=== PATIENT | female | born 1975 | race American Indian/Alaskan Native ===

== ENCOUNTER 2018-09-22 10:14 | Emergency (ER) | payer MEDICARE ==
--- NOTE | 2018-09-22 12:26 | Emergency Department Report ---
ED General Adult HPI - General Chief complaint: Skin Rash Stated complaint: LFT BUTTOCK RASH Time Seen by Provider: 09/22/18 12:08 Source: patient Mode of arrival: Ambulatory Limitations: No Limitations - History of Present Illness Initial comments: Patient is 42 years old female with no significant past medical history except for pinched nerve to the right upper extremity. Patient presented to the ER complaining of rash to the left cheek started last night. Patient stated that she laid on a new couch that she didn't have before. Patient denied any fever or chills. Patient also requesting social worker aide for placement since she recently moved from [place]. - Related Data Allergies Allergy/AdvReac Type Severity Reaction Status Date / Time No Known Allergies Allergy Verified 09/22/18 10:16 ED Review of Systems ROS: Stated complaint: LFT BUTTOCK RASH Other details as noted in HPI Comment: All other systems reviewed and negative Constitutional: denies: chills, fever Respiratory: denies: cough, orthopnea, shortness of breath, SOB with exertion Cardiovascular: denies: chest pain, palpitations Gastrointestinal: denies: abdominal pain, nausea, vomiting Skin: rash ED Past Medical Hx - Past Medical History Previous Medical History?: No - Surgical History Past Surgical History?: Yes Hx Cholecystectomy: Yes Additional Surgical History: Hernia repair. abortions - Social History Smoking Status: Current Every Day Smoker Substance Use Type: None ED Physical Exam - General Limitations: No Limitations General appearance: alert, in no apparent distress - Head Head exam: Present: atraumatic, normocephalic, normal inspection - Eye Eye exam: Present: normal appearance, PERRL - ENT ENT exam: Present: normal exam, normal orophraynx, mucous membranes moist - Neck Neck exam: Present: normal inspection, full ROM. Absent: tenderness, meni ngismus, lymphadenopathy, thyromegaly - Respiratory Respiratory exam: Present: normal lung sounds bilaterally - Cardiovascular Cardiovascular Exam: Present: regular rate, normal rhythm, normal heart sounds - Extremities Exam Extremities exam: Present: normal inspection, full ROM - Neurological Exam Neurological exam: Present: alert, oriented X3, CN II-XII intact - Skin Skin exam: Present: warm, other (contact dermatitis to the left cheek) ED Course Vital Signs 09/22/18 10:30 Temperature 98.6 F Pulse Rate 87 Respiratory 16 Rate Blood Pressure 101/64 O2 Sat by Pulse 98 Oximetry Critical care attestation.: If time is entered above; I have spent that time in minutes in the direct care of this critically ill patient, excluding procedure time. ED Disposition Clinical Impression: Contact dermatitis, Homelessness Disposition: TO HOME OR SELFCARE Is pt being admited?: No Condition: Stable Instructions: Contact Dermatitis (ED), Cervical Radiculopathy (ED) Referrals: [facility] [Provider Group] - 3-5 Days
[2018-09-22 13:59] VITALS: BP 106/61
== END 2018-09-22 13:58 | disposition home or self-care (01) ==
LOC: ED 10:14
DX: L25.9 Unspecified contact dermatitis, unspecified cause (principal); F17.200 Nicotine dependence, unspecified, uncomplicated; Z59.0 Homelessness; Z90.49 Acquired absence of other specified parts of digestive tract
CPT/HCPCS: 99282

== ENCOUNTER 2018-10-29 07:52 | Emergency (ER) | payer MEDICARE, OTHER ==
[2018-10-29] MEDS ORDERED: ZOSYN/NS 4.5GM/100ML 4.5 GM/100 ML VIAL IV ONE (08:30)
[2018-10-29] MEDS ORDERED: SUBLIMAZE IV ONE (08:30)
[2018-10-29] MEDS ORDERED: BOOSTRIX IM ONE (08:30)
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
[2018-10-29 08:57] LABS: Hematocrit 39.3 % (30.3-42.9); Hemoglobin 13.2 gm/dl (10.1-14.3); Mean Corpuscular HGB Conc 34 % (30-34); Mean Corpuscular Volume 95 fl (79-97); Platelet Count 187 K/mm3 (140-440); Red Blood Count 4.16 M/mm3 (3.65-5.03)
[2018-10-29 09:08] LABS: INR 0.98 (0.87-1.13); Partial Thromboplastin Time 28.1 Sec. (24.2-36.6)
[2018-10-29 09:17] LABS: BUN/Creatinine Ratio 12; Blood Urea Nitrogen 12 mg/dL (7-17); Calcium 8.8 mg/dL (8.4-10.2); Hemolysis Index 8
[2018-10-29] MEDS ORDERED: DILAUDID IV STA (09:28)
[2018-10-29] MEDS ORDERED: NACL 0.9% 1000 ML IV ONE (09:28)
[2018-10-29] MEDS ORDERED: VANCOMYCIN 1,250 MG in NACL 0.9% 500 ML 500 ML IV ONE (09:30)
[2018-10-29 09:51] LABS: Erythrocyte Sedimentation Rate 44 mm/Hr (0-20)
--- NOTE | 2018-10-29 10:03 | XRay Report ---
LEFT HAND RADIOGRAPHS INDICATION: Left hand pain, swelling. COMPARISON: None similar at this institution. FINDINGS: AP, lateral and oblique left hand radiographs demonstrate intact bones and joints. No focal suspicious erosions. Moderate diffuse soft tissue swelling along dorsum of the hand though suspected. CONCLUSION: Left hand dorsal soft tissue swelling without acute bony abnormality, as described. Please correlate. Thank you for the opportunity to participate in this patient's care.
[2018-10-29 11:05] LABS: Band Neutrophils # (Manual) 0.1 K/mm3; Platelet Estimate Consistent w Auto; RBC Morphology Normal; Total Cells Counted 100
[2018-10-29 12:20] VITALS: BP 114/72
== END 2018-10-29 11:15 | disposition short-term general hospital (02) ==
LOC: ED 07:52
DX: R65.10 Systemic inflammatory response syndrome (SIRS) of non-infectious origin without acute organ dysfunction (principal); L03.114 Cellulitis of left upper limb; F17.200 Nicotine dependence, unspecified, uncomplicated; Z90.49 Acquired absence of other specified parts of digestive tract
CPT/HCPCS: 36415; 73130; 80048; 82140; 82550; 84702; 85007; 85025; 85610; 85652; 85730; 86140; 87040; 90471; 90715; 96365; 96367; 96375; 99285; J1170; J2543; J3010; J3370; J7030; J7040